=== PATIENT | female | born 1995 | race Caucasian/White ===

== ENCOUNTER 2016-10-10 19:27 | Emergency (ER) | payer SELFPAY ==
[2016-10-10 19:35] VITALS: BP 105/56; PULSE 88; TEMP 98; BMI 19.1
[2016-10-10] MEDS ORDERED: ACETAMINOPHEN 325 MG TABLET (FP) PO ONE (19:54)
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
[2016-10-10] MEDS ORDERED: ACETAMINOPHEN 325 MG TABLET (FP) ONE (19:58)
[2016-10-10 20:34] LABS: URINE APPEARANCE CLOUDY; URINE BILIRUBIN NEGATIVE (NEGATIVE); URINE BLOOD NEGATIVE (NEGATIVE); URINE COLOR YELLOW; URINE GLUCOSE (UA) NEGATIVE (NEGATIVE); URINE KETONE NEGATIVE (NEGATIVE); URINE NITRITE NEGATIVE (NEGATIVE); URINE PROTEIN NEGATIVE (NEGATIVE); URINE UROBILINOGEN NEGATIVE E.U./dl (0.2-1.0)
[2016-10-10 20:37] LABS: URINE LEUK ESTERASE 1+ (NEGATIVE)
[2016-10-10 20:38] LABS: URINE BACTERIA RARE /hpf (NONE SEEN); URINE RBC 2 /hpf (0-3); URINE WBC 11 /hpf (3-5); YEAST FEW
== END 2016-10-10 22:29 | disposition home or self-care (01) ==
LOC: JER 19:27
DX: F07.81 Postconcussional syndrome (principal); G44.309 Post-traumatic headache, unspecified, not intractable; Y04.2XXA Assault by strike against or bumped into by another person, initial encounter; Y93.89 Activity, other specified; Y92.038 Other place in apartment as the place of occurrence of the external cause; Y07.9 Unspecified perpetrator of maltreatment and neglect
CPT/HCPCS: 70450-TC; 71020-TC; 72100-TC; 72125-TC; 73130-TC-LT; 81003; 81015; 84703; 99281-25